=== PATIENT | female | born 1970 | race Caucasian/White ===

== ENCOUNTER → 2019-05-23 09:42 | Outpatient (BNVA) | payer MEDICARE, MEDICAID, SELFPAY | PROVIDERS: Family Provider Family Medicine; PCP Family Medicine; Visit Provider Nurse Practitioner Psychiatric/Mental Health | DX: F20.0 Paranoid schizophrenia (principal); F17.210 Nicotine dependence, cigarettes, uncomplicated; Z86.39 Personal history of other endocrine, nutritional and metabolic disease | CPT/HCPCS: 99213 ==

== ENCOUNTER → 2019-06-20 12:48 | Outpatient (BNVA) | payer MEDICARE, MEDICAID, SELFPAY | PROVIDERS: Family Provider Family Medicine; PCP Family Medicine; Visit Provider Nurse Practitioner Psychiatric/Mental Health | DX: F20.0 Paranoid schizophrenia (principal); F17.210 Nicotine dependence, cigarettes, uncomplicated | CPT/HCPCS: 99213 ==

== ENCOUNTER → 2019-07-18 13:39 | Outpatient (BNVA) | payer MEDICARE, MEDICAID, SELFPAY | PROVIDERS: Family Provider Family Medicine; PCP Family Medicine; Visit Provider Nurse Practitioner Psychiatric/Mental Health | DX: F20.0 Paranoid schizophrenia (principal); F17.210 Nicotine dependence, cigarettes, uncomplicated; Z86.39 Personal history of other endocrine, nutritional and metabolic disease | CPT/HCPCS: 99213 ==

== ENCOUNTER → 2019-08-15 07:38 | Outpatient (BNVA) | payer MEDICARE, MEDICAID, SELFPAY | PROVIDERS: Family Provider Family Medicine; PCP Family Medicine; Visit Provider Nurse Practitioner Psychiatric/Mental Health | DX: F20.0 Paranoid schizophrenia (principal); F17.210 Nicotine dependence, cigarettes, uncomplicated; Z86.39 Personal history of other endocrine, nutritional and metabolic disease | CPT/HCPCS: 99213 ==

== ENCOUNTER → 2019-09-12 08:08 | Outpatient (BNVA) | payer MEDICARE, MEDICAID, SELFPAY | PROVIDERS: Family Provider Family Medicine; PCP Family Medicine; Visit Provider Nurse Practitioner Psychiatric/Mental Health | DX: F20.0 Paranoid schizophrenia (principal); F17.210 Nicotine dependence, cigarettes, uncomplicated; Z86.39 Personal history of other endocrine, nutritional and metabolic disease | CPT/HCPCS: 99213 ==

== ENCOUNTER → 2019-10-10 07:39 | Outpatient (BNVA) | payer MEDICARE, MEDICAID, SELFPAY | PROVIDERS: Family Provider Family Medicine; PCP Family Medicine; Visit Provider Nurse Practitioner Psychiatric/Mental Health | DX: F20.0 Paranoid schizophrenia (principal); F17.210 Nicotine dependence, cigarettes, uncomplicated; Z79.899 Other long term (current) drug therapy | CPT/HCPCS: 99213 ==

== ENCOUNTER 2019-10-11 21:00 | Emergency (ER) | payer MEDICARE, MEDICAID, SELFPAY ==
--- NOTE | 2019-10-11 21:04 | US_ITS ---
WS: [id number] RIGHT UPPER QUADRANT ULTRASOUND HISTORY: Pain COMPARISON: None available. Liver: 16.6 cm in length. Normal size and echogenicity with no intrahepatic dilatation. No mass. Gallbladder: Mildly contracted gallbladder is probably due to nonfasting state. No stones or wall thi ckening identified. CBD: 0.4 cm Pancreas: Normal size and echogenicity. Right kidney: 10.6 cm in length. Normal echogenicity with no mass or hydronephrosis. Aorta and IVC: Unremarkable. No ascites. US/US gall bladder [id number] IMPRESSION: Normal RIGHT upper quadrant ultrasound.
[2019-10-11 21:17] VITALS: BP 131/87; PULSE 75; RESP 24; TEMP 36.8; O2SAT 92; BMI 31.8
[2019-10-11 21:56] LABS: Basophils # 0.1 10^3/uL (0.0-0.1); Basophils % 0.7 %; Eosinophils # 0.2 10^3/uL (0.0-0.8); Hematocrit 47.3 % (37.0-47.0); Hemoglobin 15.6 g/dL (11.5-15.3); Lymphocytes # 2.3 10^3/uL (0.8-4.8); Lymphocytes % 26.9 %; Mean Corpuscular Hemoglobin 30.1 pg (28.0-34.0); Mean Corpuscular Volume 91.3 fL (81-99); Mean Platelet Volume 9.1 fL (7.4-10.4); Monocytes # 0.9 10^3/uL (0.2-0.9); Monocytes % 10.3 %; Neutrophils # 5.1 10^3/uL (1.8-7.7); Neutrophils % 59.7 %; Nucleated Red Blood Cells % 0 %; Platelet Count 323 10^3/cmm (130-400); Red Blood Count 5.18 10^6/uL (4.1-5.3); Red Cell Distribution Width 12.3 % (12.1-15.1); White Blood Count 8.6 10^3/uL (4.0-10.0)
[2019-10-11 22:18] LABS: HCG, Serum Qual Negative (Negative)
[2019-10-11 22:26] LABS: Alanine Aminotransferase 9 U/L (0-33); Albumin Level 4.4 g/dL (3.5-5.2); Alkaline Phosphatase 86 IU/L (35-105); Anion Gap 14.9 (5-19); Aspartate Amino Transferase 16 U/L (0-32); Blood Urea Nitrogen 14 mg/dL (6-20); Calcium 9.6 mg/dL (8.5-10.5); Carbon Dioxide 29 mmol/L (22-29); Chloride 99 mmol/L (98-107); Globulin 2.8 g/dL (1.3-4.6); Glomerular Filtration Rate 88.6 mL/min (90-130); Glucose 102 mg/dL (65-115); Lipase 26 U/L (13-60); Osmolality Calculated 284 mOsm/kg (285-295); Potassium 3.9 mmol/L (3.5-5.1); Sodium 139 mmol/L (136-145); Total Bilirubin 0.3 mg/dL (0.15-1.2); Total Protein 7.2 g/dL (6.6-8.7)
[2019-10-11] MEDS: sodium chloride 0.9% 1,000 ML 100 ML IV (22:41)
--- NOTE | 2019-10-11 22:41 | W.ED.CHESTPA ---
HPI - Chest Pain General: Chief Complaint: Chest Pain Stated Complaint: r upper abd pain Time Seen by Provider: 10/11/19 22:07 History of Present Illness: HPI narrative: Patient is a 49-year-old female comes to the ED with right rib pain. Patient says symptoms started last Wednesday. Patient states she was doing a lot of work around the house and reconstructing her room she thinks she might of pulled a muscle while doing the work. Pain is located in the right lower rib region of chest and right upper quadrant of the abdomen. Pain is rated a 7 out of 10, but only when she moves her upper body. Pain is constant and does not correlate with any intake of food. Denies nausea, vomiting, bladder or bowel symptoms, shortness of breath, palpitations. Associated symptoms: Reports abdominal pain (Right upper quadrant pain.); Deny dyspnea, fever(s), nausea, palpitations or vomiting Review of Systems Const: Denies: fever(s), chills or fatigue Eyes: Denies: change in vision or eye discomfort ENMT: Denies: throat pain, odynophagia, nasal discharge or nasal congestion Card: Reports: chest pain (Right lateral lower rib pain.); Denies: palpitations, edema, swelling of feet/ankles, dyspnea on exertion or orthopnea Resp: Denies: dyspnea, productive cough or non-productive cough GI: Reports: abdominal pain (Right upper quadrant pain.); Denies: nausea, vomiting, diarrhea, constipation or hematochezia : Denies: flank pain, dysuria or hematuria Musc: Denies: neck pain, back pain or extremity swelling Skin/Breast: Denies: rash or new lesions Neuro: Denies: headache(s), numbness in extremities or weakness in extremities PFSH ED PFSH: Medical History Cigarette nicotine dependence History of hypoglycemia Hx of traumatic brain injury Paranoid schizophrenia in remission Surgical History Hx of shoulder surgery left shoulder Social History Smoking and tobacco status: current every day smoker cigarettes Packs smoked per day: 1 Years cigarettes smoked: 30 Quit status (tobacco): not considering quitting Second hand smoke exposure: No Smoking risk assessment/counseling performed?: No Reason smoking risk assessment not done: patient refused Physical Exam Const: COMMON NORMALS: patient oriented x3 and alert GENERAL APPEARANCE: cooperative and comfortable HENMT: COMMON NORMALS: normocephalic HEAD & SCALP: normocephalic MOUTH: Normal oral and palatal mucosa present THROAT: posterior oropharynx normal and uvula midline Neck/C-Spine: COMMON NORMALS: supple GENERAL: Yes normal visual inspection Chest: CHEST: Yes localized rib tenderness with anteroposterior compression (Right lateral side of chest tender) Location: 7th rib, 8th rib and 9th rib OTHER: Pain was reproducible when pushed on right lower chest and right upper quadrant. Resp: COMMON NORMALS: normal respiratory effort, No retractions, No use of accessory muscles and clear to auscultation bilaterally AUSCULTATION: clear to auscultation bilaterally Cardio: COMMON NORMALS: regular rate, regular rhythm, S1 normal heart sound present, S2 normal heart sound present, No gallops present (Cardio), No clicks present (Cardio), No murmurs present (Cardio) and Peripheral pulses 2+ throughout RATE: regular rate RHYTHM: regular rhythm HEART SOUNDS: S1 normal heart sound present and S2 normal heart sound present PERIPHERAL PULSES: Peripheral pulses 2+ throughout GI: COMMON NORMALS: Normal to inspection, nondistended, normoactive bowel sounds present, Soft to palpation and no masses PALPATION: Yes Soft to palpation and Yes Tenderness to palpation present (GI) Details: RUQ (Positive Webb sign.) : COMMON NORMALS: Yes no CVA tenderness BLADDER/KIDNEY EXAM: Yes no CVA tenderness Back/Pelvis: COMMON NORMALS: no CVA tenderness Extremity: COMMON NORMALS: normal to inspection and no pedal edema Neuro: COMMON NORMALS: patient oriented x3 and moves all extremities SENSORIUM/ORIENTATION: Yes alert Skin: COMMON NORMALS: no rashes or lesions noted GENERAL SKIN EXAM: no rashes or lesions noted and dry skin Course ED course: HEART score of 3-low risk category Vital Signs: Vital signs: Vital Signs Temperature 98.2 F 10/11/19 21:17 Pulse Rate 77 10/12/19 01:07 Respiratory Rate 18 10/12/19 01:07 Blood Pressure 137/88 10/12/19 01:07 Pulse Oximetry 98 10/12/19 01:07 MDM - Chest Pain MDM Narrative: Medical decision making narrative: Patient is a 49-year-old female who comes to the ED with right upper quadrant tenderness/lower right rib pain. Symptoms started after patient was doing a lot of reconstruction work in house. Patient's pain is reproducible when palpated in the right upper quadrant area and right lower rib area. Muscular tenderness when palpated in that region. Chest and right rib x-ray was performed to rule out any rib fractures. No rib fractures were seen chest x-ray was normal. Ultrasound of the gallbladder was performed to rule out any gallbladder cause for pain and reports showed no acute findings. CBC, CMP and lipase were unremarkable. EKG showed normal sinus rhythm, and troponins were negative ruling out any cardiac cause. Heart score of 3-low risk. Patient diagnosed with muscle strain and given a prescription of muscle relaxer to help with pain and comfort. Patient was told to ice the tender area and to take ibuprofen up to 600 mg 3 times a day. Follow-up with PCP in 7 to 10 days reevaluation. Patient understood and agreed with plan. Lab Data: Attestation: I reviewed the patient's lab results. Labs: Lab Results 10/11/19 10/11/19 10/11/19 Range/Units 21:42 21:42 21:42 WBC 8.6 (4.0-10.0) 10^3/ uL RBC 5.18 (4.1-5.3) 10^6/u L Hgb 15.6 H (11.5-15.3) g/dL Hct 47.3 H (37.0-47.0) % MCV 91.3 (81-99) fL MCH 30.1 (28.0-34.0) pg MCHC 33.0 (30.0-36.0) g/dL RDW 12.3 (12.1-15.1) % Plt Count 323 (130-400) 10^3/c mm MPV 9.1 (7.4-10.4) fL Neut % (Auto) 59.7 % Lymph % (Auto) 26.9 % [place] % (Auto) 10.3 % Eos % (Auto) 2.0 % Baso % (Auto) 0.7 % Neut # (Auto) 5.1 (1.8-7.7) 10^3/u L Lymph # (Auto) 2.3 (0.8-4.8) 10^3/u L [place] # (Auto) 0.9 (0.2-0.9) 10^3/u L Eos # (Auto) 0.2 (0.0-0.8) 10^3/u L Baso # (Auto) 0.1 (0.0-0.1) 10^3/u L Nucleated RBC % (a uto) 0 % Nucleated RBCs # 0.0 /100WBC Sodium 139 (136-145) mmol/L Potassium 3.9 (3.5-5.1) mmol/L Chloride 99 (98-107) mmol/L Carbon Dioxide 29 (22-29) mmol/L Anion Gap 14.9 (5-19) BUN 14 (6-20) mg/dL Creatinine 0.7 (0.5-0.9) mg/dL GFR Calculation 88.6 L (90-130) mL/min Glucose 102 (65-115) mg/dL Calculated Osmolal ity 284 L (285-295) mOsm/k g Calcium 9.6 (8.5-10.5) mg/dL Total Bilirubin 0.3 (0.15-1.2) mg/dL AST 16 (0-32) U/L ALT 9 (0-33) U/L Alkaline Phosphata se 86 (35-105) IU/L Troponin T Baselin e (0-10) ng/mL Total Protein 7.2 (6.6-8.7) g/dL Albumin 4.4 (3.5-5.2) g/dL Globulin 2.8 (1.3-4.6) g/dL Lipase 26 (13-60) U/L HCG, Qual Negative (Negative) 10/11/19 Range/Units 21:42 WBC (4.0-10.0) 10^3/ uL RBC (4.1-5.3) 10^6/u L Hgb (11.5-15.3) g/dL Hct (37.0-47.0) % MCV (81-99) fL MCH (28.0-34.0) pg MCHC (30.0-36.0) g/dL RDW (12.1-15.1) % Plt Count (130-400) 10^3/c mm MPV (7.4-10.4) fL Neut % (Auto) % Lymph % (Auto) % [place] % (Auto) % Eos % (Auto) % Baso % (Auto) % Neut # (Auto) (1.8-7.7) 10^3/u L Lymph # (Auto) (0.8-4.8) 10^3/u L [place] # (Auto) (0.2-0.9) 10^3/u L Eos # (Auto) (0.0-0.8) 10^3/u L Baso # (Auto) (0.0-0.1) 10^3/u L Nucleated RBC % (a uto) % Nucleated RBCs # /100WBC Sodium (136-145) mmol/L Potassium (3.5-5.1) mmol/L Chloride (98-107) mmol/L Carbon Dioxide (22-29) mmol/L Anion Gap (5-19) BUN (6-20) mg/dL Creatinine (0.5-0.9) mg/dL GFR Calculation (90-130) mL/min Glucose (65-115) mg/dL Calculated Osmolal ity (285-295) mOsm/k g Calcium (8.5-10.5) mg/dL Total Bilirubin (0.15-1.2) mg/dL AST (0-32) U/L ALT (0-33) U/L Alkaline Phosphata se (35-105) IU/L Troponin T Baselin e 6 (0-10) ng/mL Total Protein (6.6-8.7) g/dL Albumin (3.5-5.2) g/dL Globulin (1.3-4.6) g/dL Lipase (13-60) U/L HCG, Qual (Negative) Imaging Data^: CXR: Attestation: I personally reviewed and interpreted this imaging study as follows: My impression: No rib fractures or any acute findings seen. Pending final radiology report. US: Attestation: I personally reviewed and interpreted this imaging study as follows: Radiologist's impression: Ultrasound gallbladder-prelim report-no acute findings seen EKG Data^: EKG 1: Attestation: I personally reviewed and interpreted this EKG as follows: EKG interpretation date: 10/11/19 Interpretation: Normal sinus rhythm, ventricular rate 59 bpm, P waves present no ST segment elevation or depression seen. Discharge Plan Discharge Patient Disposition: Home, Self-Care Clinical Impression: Muscle strain Condition: Stable Prescriptions: New methocarbamol 750 mg tablet 750 mg PO Q8H Qty: 20 RF: 0 No Action melatonin 3 mg capsule 3 mg PO .QHS PRN (Reason: sleep) RF: 0 Abilify Maintena 300 mg suspension,extended rel recon 300 mg IM .Q 4WKS Qty: 1 RF: 12 Discharge Orders: Discharge Order (Routine); Ordered 10/12/19 Ordered By: Yoan Knapp Referrals: Eyad Arndt DO [Primary Care Provider] - Discharge Diet: Regular Discharge Activity: Increase activity as tolerated Patient Instructions: Muscle Strain (ED) Activity Restrictions/Additional Instructions: Follow-up with your PCP in the next 7 to 10 days for reevaluation. Take muscle relaxer as prescribed. Take dose at night to help with pain and comfort while sleeping. Remember muscle relaxer can cause some drowsiness so use with caution during the day. Apply ice on sore spot. Take ibuprofen up to 600 mg 3 times a day to help with pain and inflammation. Discharge Date/Time: 10/12/19 01:14 Coding Level of Care Code ED Electrical Maintenance Worker for Ajay Fwrhonda Exam Comprehensive
--- NOTE | 2019-10-11 22:53 | XR_ITS ---
WS: [id number] RIGHT RIBS, MULTIPLE VIEWS WITH PA CHEST HISTORY: right rib pain COMPARISON: None available. Lungs and mediastinum: No pneumothorax or pulmonary contusion. No pleural effusion. Ribs: No rib fractures or bone destruction identified. XR/XR ribs RT mn 3V w CXR1V [id number] IMPRESSION: No RIGHT rib fractures identified.
--- NOTE | 2019-10-11 23:10 | ECG_ITS ---
Measurements Intervals [place] Rate: 59 P: 56 IN: 144 QRS: 34 QRSD: 86 T: 62 QT: 408 QTc: 407 SINUS BRADYCARDIA WITH SINUS ARRHYTHMIA No previous ECG available for comparison Electronically Signed On 10-12-2019 11:47:31 CDT by Glenn Marti M.D. [id number]
[2019-10-11 23:28] LABS: Troponin(5th) Baseline 6 ng/mL (0-10)
[2019-10-11 23:41] VITALS: BP 138/78; PULSE 59; RESP 16; O2SAT 97
[2019-10-12] MEDS: HYDROcodone-acetaminophen 7.5-325 mg Tablet 1 TAB PO (01:00)
[2019-10-12 01:07] VITALS: BP 137/88; PULSE 77; RESP 18; O2SAT 98
== END 2019-10-12 01:14 | disposition home or self-care (01) ==
PROVIDERS: Emergency Medicine; Emergency Provider Physician Assistant; PCP Family Medicine
DX: S39.011A Strain of muscle, fascia and tendon of abdomen, initial encounter (principal); X58.XXXA Exposure to other specified factors, initial encounter; F17.210 Nicotine dependence, cigarettes, uncomplicated
CPT/HCPCS: 12345; 36415; 71101; 76705; 80053; 83690; 84484; 84703; 85025; 93005; 96360; 96361; 99282; 99284; J7030

== ENCOUNTER → 2019-11-07 07:29 | Outpatient (BNVA) | payer MEDICARE, MEDICAID, SELFPAY | PROVIDERS: PCP Family Medicine; Visit Provider Nurse Practitioner Psychiatric/Mental Health | DX: F20.0 Paranoid schizophrenia (principal); F17.210 Nicotine dependence, cigarettes, uncomplicated | CPT/HCPCS: 96372; 99213 ==

== ENCOUNTER → 2019-12-05 07:38 | Outpatient (BNVA) | payer MEDICARE, MEDICAID, SELFPAY | PROVIDERS: PCP Family Medicine; Visit Provider Nurse Practitioner Psychiatric/Mental Health | DX: F20.0 Paranoid schizophrenia (principal); F17.210 Nicotine dependence, cigarettes, uncomplicated | CPT/HCPCS: 99213 ==

== ENCOUNTER → 2020-01-02 07:49 | Outpatient (BNVA) | payer MEDICARE, MEDICAID, SELFPAY | PROVIDERS: PCP Family Medicine; Visit Provider Nurse Practitioner Psychiatric/Mental Health | DX: F20.0 Paranoid schizophrenia (principal); F17.210 Nicotine dependence, cigarettes, uncomplicated | CPT/HCPCS: 96372; 99213 ==

== ENCOUNTER → 2020-01-30 08:36 | Outpatient (BNVA) | payer MEDICARE, MEDICAID, SELFPAY | PROVIDERS: PCP Family Medicine; Visit Provider Nurse Practitioner Psychiatric/Mental Health | DX: F20.0 Paranoid schizophrenia (principal); F17.210 Nicotine dependence, cigarettes, uncomplicated; Z03.89 Encounter for observation for other suspected diseases and conditions ruled out; Z79.899 Other long term (current) drug therapy | CPT/HCPCS: 80061; 83036; 96372; 99213 ==

== ENCOUNTER → 2020-02-27 09:35 | Outpatient (BNVA) | payer MEDICARE, MEDICAID, SELFPAY | PROVIDERS: PCP Family Medicine; Visit Provider Nurse Practitioner Psychiatric/Mental Health | DX: F20.0 Paranoid schizophrenia (principal); F17.210 Nicotine dependence, cigarettes, uncomplicated | CPT/HCPCS: 96372; 99213 ==

== ENCOUNTER → 2020-03-26 07:39 | Outpatient (BNVA) | payer MEDICARE, MEDICAID, SELFPAY | PROVIDERS: PCP Family Medicine; Visit Provider Nurse Practitioner Psychiatric/Mental Health | DX: F20.0 Paranoid schizophrenia (principal); F17.210 Nicotine dependence, cigarettes, uncomplicated | CPT/HCPCS: 96372; 99213 ==

== ENCOUNTER → 2020-04-23 08:50 | Outpatient (BNVA) | payer MEDICARE, MEDICAID, SELFPAY | PROVIDERS: PCP Family Medicine; Visit Provider Nurse Practitioner Psychiatric/Mental Health | DX: F20.0 Paranoid schizophrenia (principal); F17.210 Nicotine dependence, cigarettes, uncomplicated | CPT/HCPCS: 96372; 99213 ==

== ENCOUNTER → 2020-05-24 11:17 | Outpatient (BNVA) | payer MEDICARE, MEDICAID, SELFPAY | PROVIDERS: PCP Family Medicine; Visit Provider Nurse Practitioner | DX: F20.0 Paranoid schizophrenia (principal) | CPT/HCPCS: 96372; 99203 ==

== ENCOUNTER → 2020-06-24 08:50 | Outpatient (BNVA) | payer MEDICARE, MEDICAID, SELFPAY | PROVIDERS: PCP Family Medicine; Visit Provider Nurse Practitioner Psychiatric/Mental Health | DX: F20.0 Paranoid schizophrenia (principal) | CPT/HCPCS: 96372; 99213 ==

== ENCOUNTER → 2020-07-22 08:36 | Outpatient (BNVA) | payer MEDICAID, SELFPAY | PROVIDERS: PCP Family Medicine; Visit Provider Nurse Practitioner Psychiatric/Mental Health | DX: F20.0 Paranoid schizophrenia (principal) | CPT/HCPCS: 96372; 99213 ==

== ENCOUNTER → 2020-08-19 09:46 | Outpatient (BNVA) | payer MEDICARE, MEDICAID, SELFPAY | PROVIDERS: PCP Family Medicine; Visit Provider Nurse Practitioner | DX: F20.0 Paranoid schizophrenia (principal) | CPT/HCPCS: 96372; 99214 ==

== ENCOUNTER → 2020-09-16 13:02 | Outpatient (BNVA) | payer MEDICARE, MEDICAID, SELFPAY | PROVIDERS: PCP Family Medicine; Visit Provider Nurse Practitioner Psychiatric/Mental Health | DX: F20.0 Paranoid schizophrenia (principal); F17.210 Nicotine dependence, cigarettes, uncomplicated | CPT/HCPCS: 96372; 99213 ==

== ENCOUNTER → 2020-10-21 08:38 | Outpatient (BNVA) | payer MEDICARE, MEDICAID, SELFPAY | PROVIDERS: PCP Family Medicine; Visit Provider Nurse Practitioner Psychiatric/Mental Health | DX: F20.0 Paranoid schizophrenia (principal); F17.210 Nicotine dependence, cigarettes, uncomplicated | CPT/HCPCS: 96372; 99214 ==

== ENCOUNTER → 2020-11-20 08:47 | Outpatient (BNVA) | payer MEDICARE, MEDICAID, SELFPAY | PROVIDERS: PCP Family Medicine; Visit Provider Nurse Practitioner Psychiatric/Mental Health | DX: F20.0 Paranoid schizophrenia (principal); F17.210 Nicotine dependence, cigarettes, uncomplicated | CPT/HCPCS: 96372; 99214 ==

== ENCOUNTER → 2020-12-18 08:46 | Outpatient (BNVA) | payer MEDICARE, MEDICAID, SELFPAY | PROVIDERS: PCP Family Medicine; Visit Provider Nurse Practitioner Psychiatric/Mental Health | DX: F20.0 Paranoid schizophrenia (principal); Z79.899 Other long term (current) drug therapy; F17.210 Nicotine dependence, cigarettes, uncomplicated | CPT/HCPCS: 96372; 99213 ==

== ENCOUNTER → 2021-01-16 08:35 | Outpatient (BNVA) | payer MEDICARE, MEDICAID, SELFPAY | PROVIDERS: PCP Family Medicine; Visit Provider Nurse Practitioner Psychiatric/Mental Health | DX: F20.0 Paranoid schizophrenia (principal); F17.210 Nicotine dependence, cigarettes, uncomplicated | CPT/HCPCS: 96372; 99214 ==

== ENCOUNTER → 2021-02-19 08:46 | Outpatient (BNVA) | payer MEDICARE, MEDICAID, SELFPAY | PROVIDERS: PCP Family Medicine; Visit Provider Nurse Practitioner Psychiatric/Mental Health | DX: F20.0 Paranoid schizophrenia (principal); F17.210 Nicotine dependence, cigarettes, uncomplicated; Z79.899 Other long term (current) drug therapy | CPT/HCPCS: 80053; 80061; 83036; 85025; 96372; 99214 ==

== ENCOUNTER → 2021-03-19 08:46 | Outpatient (BNVA) | payer MEDICARE, MEDICAID, SELFPAY | PROVIDERS: PCP Family Medicine; Visit Provider Nurse Practitioner Psychiatric/Mental Health | DX: F20.0 Paranoid schizophrenia (principal); Z79.899 Other long term (current) drug therapy; F17.210 Nicotine dependence, cigarettes, uncomplicated | CPT/HCPCS: 96372; 99214 ==

== ENCOUNTER → 2021-04-17 14:32 | Outpatient (BNVA) | payer MEDICARE, MEDICAID, SELFPAY | PROVIDERS: PCP Family Medicine; Visit Provider Nurse Practitioner Psychiatric/Mental Health | DX: F20.0 Paranoid schizophrenia (principal); F17.210 Nicotine dependence, cigarettes, uncomplicated | CPT/HCPCS: 96372; 99214 ==

== ENCOUNTER → 2021-05-13 14:40 | Outpatient (BNVA) | payer MEDICARE, MEDICAID, SELFPAY | PROVIDERS: PCP Family Medicine; Visit Provider Nurse Practitioner Psychiatric/Mental Health | DX: F20.0 Paranoid schizophrenia (principal); F17.210 Nicotine dependence, cigarettes, uncomplicated | CPT/HCPCS: 96372; 99214 ==

== ENCOUNTER → 2021-06-12 12:45 | Outpatient (BNVA) | payer MEDICARE, MEDICAID, SELFPAY | PROVIDERS: PCP Family Medicine; Visit Provider Nurse Practitioner Psychiatric/Mental Health | DX: F17.210 Nicotine dependence, cigarettes, uncomplicated (principal); F20.0 Paranoid schizophrenia; Z79.899 Other long term (current) drug therapy | CPT/HCPCS: 96372; 99214 ==

== ENCOUNTER → 2021-07-08 12:43 | Outpatient (BNVA) | payer MEDICARE, MEDICAID, SELFPAY | PROVIDERS: PCP Family Medicine; Visit Provider Nurse Practitioner Psychiatric/Mental Health | DX: F20.0 Paranoid schizophrenia (principal); F17.210 Nicotine dependence, cigarettes, uncomplicated | CPT/HCPCS: 96372; 99214 ==

== ENCOUNTER → 2021-08-08 13:13 | Outpatient (BNVA) | payer MEDICARE, MEDICAID, SELFPAY | PROVIDERS: PCP Family Medicine; Visit Provider Nurse Practitioner Psychiatric/Mental Health | DX: F17.210 Nicotine dependence, cigarettes, uncomplicated (principal); F20.0 Paranoid schizophrenia | CPT/HCPCS: 96372; 99214 ==

== ENCOUNTER → 2021-09-08 12:44 | Outpatient (BNVA) | payer MEDICARE, MEDICAID, SELFPAY | PROVIDERS: PCP Family Medicine; Visit Provider Nurse Practitioner Psychiatric/Mental Health | DX: F17.210 Nicotine dependence, cigarettes, uncomplicated (principal); F20.0 Paranoid schizophrenia; Z79.899 Other long term (current) drug therapy | CPT/HCPCS: 96372; 99214 ==

== ENCOUNTER → 2021-10-08 08:45 | Outpatient (BNVA) | payer MEDICARE, MEDICAID, SELFPAY | PROVIDERS: PCP Family Medicine; Visit Provider Nurse Practitioner Psychiatric/Mental Health | DX: F17.210 Nicotine dependence, cigarettes, uncomplicated (principal) | CPT/HCPCS: 96372; 99214 ==

== ENCOUNTER → 2021-11-07 08:09 | Outpatient (BNVA) | payer MEDICARE, MEDICAID, SELFPAY | PROVIDERS: PCP Family Medicine; Visit Provider Nurse Practitioner Psychiatric/Mental Health | DX: F17.210 Nicotine dependence, cigarettes, uncomplicated (principal); F20.0 Paranoid schizophrenia; Z79.899 Other long term (current) drug therapy | CPT/HCPCS: 96372; 99214 ==

== ENCOUNTER → 2022-04-01 08:39 | Outpatient (BNVA) | payer MEDICARE, MEDICAID, OTHER, SELFPAY | PROVIDERS: PCP Family Medicine; Visit Provider Nurse Practitioner Psychiatric/Mental Health | DX: F20.0 Paranoid schizophrenia (principal); Z79.899 Other long term (current) drug therapy; F17.210 Nicotine dependence, cigarettes, uncomplicated | CPT/HCPCS: 80053; 80061; 82306; 83036 ==

== ENCOUNTER 2022-06-25 13:35 | Emergency (ER) | payer MEDICARE, MEDICAID, SELFPAY ==
[2022-06-25 13:44] VITALS: BP 157/92; PULSE 80; RESP 20; TEMP 36.9; O2SAT 74
--- NOTE | 2022-06-25 13:55 | XRR_ITS ---
PROCEDURE INFORMATION: Exam: XR Chest Exam date and time: 06/25/2022 2:56 PM Age: 52 years old Clinical indication: Shortness of breath; Additional info: Dyspnea TECHNIQUE: Imaging protocol: Radiologic exam of the chest. Views: 1 view. COMPARISON: CR XR ribs RT mn 3V w CXR1V [id number] 10/11/2019 11:01 PM FINDINGS: Lungs: Faint bibasilar ground-glass opacities not evident previously that may be artifactual from breast attenuation artifact. However possibility of mild bibasilar interstitial infiltrates cannot be ruled out and could be clarified on follow-up PA and lateral chest exam. Chronic granulomatous calcifications within the mediastinum and right hilum, stable. Pleural spaces: Unremarkable. No pleural effusion. No pneumothorax. Heart/Mediastinum: Unremarkable. No cardiomegaly. Bones/joints: Unremarkable for age. XR/XR chest 1V portable [id number] IMPRESSION: Nonspecific faint bibasilar opacities as discussed above.
--- NOTE | 2022-06-25 13:55 | ECG_ITS ---
[facility] Test Date: 2022-06-25 Pat Name: Pita Unger Department: Room: Gender: Female Counselor/Art Therapist: : 1970 Requested By: Cesar Moscoso Order Number: [id number] Toshia MD: Sandra Ramirez M.D. Measurements Intervals [place] Rate: 101 P: 64 MT: 129 QRS: 34 QRSD: 82 T: 46 QT: 369 QTc: 478 Interpretive Statements SINUS TACHYCARDIA POSSIBLE ANTERIOR MYOCARDIAL INFARCTION , OF INDETERMINATE AGE [30 ms Q WAVE IN V3/V4, OR R < 0.2 mV IN V4] MODERATE T-WAVE ABNORMALITY, CONSIDER LATERAL ISCHEMIA [-0.1+ mV T-WAVE IN I/aVL/V5/V6] Compared to ECG 10/11/2019 23:45:54 Myocardial infarct finding now present T-wave abnormality now present Possible ischemia now present Sinus bradycardia no longer present Sinus arrhythmia no longer present Electronically Signed On 06-26-2022 7:56:01 BRIDGE REPAIRER by Sandra Ramirez M.D. [email or web address]
[2022-06-25 14:07] VITALS: BP 162/97; PULSE 95; RESP 19; O2SAT 95
--- NOTE | 2022-06-25 14:08 | ED_ITS ---
HPI - SOB/Dyspnea General: Chief Complaint: Shortness of Breath/Dyspnea Stated Complaint: Hair sent for heart issues Time Seen by Provider: 06/25/22 13:54 Source: patient Mode of arrival: ambulatory History of Present Illness: HPI Narrative: 52-year-old presents to the emergency room with complaint of shortness of breath on arrival here her oxygen sat is 78% on room air she has increasing swelling he r legs as well as lower extremity edema the last few days. She has been extremely weak and short of breath has had a slight cough and some wheezing. She denies any history of COPD or CHF but she does smoke daily. She is not on any inhaled medications she has no known history of coronary artery disease she has no known history of diabetes mellitus. She is not on oxygen at home she denies any chest pain. MD elicited complaint: shortness of breath and cough Onset (ago): week(s) Timing: progressively worsening Severity: moderate Exacerbating factors: lying flat, exertion and coughing Relieving factors: oxygen and upright position Associated symptoms: Reports chest congestion, cough and orthopnea; Deny abdominal pain, chest pain, diaphoresis, dizziness, extremity pain, fever(s), hemoptysis, lightheadedness, myalgias, nausea, palpitations, paresthesias, polydipsia, polyuria, rash, sense of impending doom, syncope or vomiting Treatment prior to arrival: none Review of Systems Const: Denies: fever(s), chills, fatigue, malaise or diaphoresis ENMT: Denies: throat pain, ear or mastoid pain, nasal discharge or nasal congestion Card: Reports: orthopnea; Denies: chest pain, palpitations, lightheadedness or syncope Resp: Reports: dyspnea, non-productive cough, wheezing and chest congestion; Denies: productive cough or hemoptysis GI: Denies: abdominal pain, nausea or vomiting : Denies: flank pain, difficulty voiding, dysuria, urinary frequency or urinary urgency Musc: Reports: extremity swelling; Denies: neck pain, back pain or extremity pain Skin/Breast: Denies: rash or pruritus Neuro: Denies: dizziness Endo: Denies: polyuria or polydipsia PFS ED PFSH: Medical History Cigarette nicotine dependence History of hypoglycemia Hx of traumatic brain injury Paranoid schizophrenia in remission Psychiatric care Surgical History Hx of shoulder surgery left shoulder Social History Smoking and tobacco status: current every day smoker cigarettes Packs smoked per day: 1 Years cigarettes smoked: 30 Quit status (tobacco): not considering quitting Second hand smoke exposure: No Smoking risk assessment/counseling performed?: No Reason smoking risk assessment not done: patient refused Physical Exam Const: COMMON NORMALS: no acute distress GENERAL APPEARANCE: cooperative and comfortable ORIENTATION/CONSCIOUSNESS: Yes awake, Yes oriented to person, Yes oriented to place and Yes oriented to time HENMT: COMMON NORMALS: normocephalic, atraumatic and hearing grossly normal bilaterally HEAD & SCALP: normocephalic and atraumatic Resp: EFFORT & INSPECTION: Yes tachypneic and Yes uses accessory muscles AUSCULTATION: wheezes and diminished lung sounds Cardio: COMMON NORMALS: regular rate, regular rhythm and No murmurs present (Cardio) RATE: regular rate RHYTHM: regular rhythm GI: COMMON NORMALS: Soft to palpation and No hepatosplenomegaly present AUSCULTATION: Yes normoactive bowel sounds PALPATION: Yes Soft to palpation, No Tenderness to palpation present (GI), No Guarding due to palpation present (GI) and Yes No hepatosplenomegaly present Extremity: COMMON NORMALS: normal to inspection, capillary refill normal, no clubbing, cyanosis or edema, no calf tenderness and no pedal edema Neuro: SENSORIUM/ORIENTATION: Yes oriented to person, Yes oriented to place and Yes oriented to time Skin: COMMON NORMALS: no rashes or lesions noted GENERAL SKIN EXAM: no rashes or lesions noted Course Vital Signs: Vital signs: Vital Signs Temperature 98.4 F 06/25/22 13:44 Pulse Rate 90 06/25/22 15:49 Respiratory Rate 19 H 06/25/22 15:33 Blood Pressure 162/97 06/25/22 14:07 Pulse Oximetry 84 L 06/25/22 17:30 Oxygen Delivery Me thod 06/25/22 15:33 Oxygen Flow Rate 5 06/25/22 17:30 MDM - SOB/Dyspnea Medical Decision Making Labs imaging and EKG reviewed. COVID testing is negative. Findings consistent with severe COPD with exacerbation and CHF. Recommended admission patient refuses long discussion with patient and very concerned that she will decompensate and worsen significantly and could even given the degree of her hypoxia when she first arrived. She was prescribed oxygen several years ago has not been using we will discharge her home on 5 L. We will also start her on inhaled medications. Expressed to her my sincere concern that she will likely worsen. May even go into respiratory arrest. Despite not knowledge of this and it encouragement of her family to space to stay she refuses to say no be discharged home we will discharge her home on Lasix inhaled corticosteroids and long-acting beta agonist. Return if is any further problems or changes mind and wishes to be admitted Medical Records I reviewed the patient's medical records. Lab Data I reviewed the patient's lab results. 06/25/22 14:20 06/25/22 14:20 Labs/Radiology: Radiology Impressions Chest X-Ray 06/25/22 13:55 IMPRESSION: Nonspecific faint bibasilar opacities as discussed above. Laboratory Results WBC 10.7 10^3/uL (4.0-10.0) H 06/25/22 14:20 RBC 5.36 10^6/uL (4.1-5.3) H 06/25/22 14:20 Hgb 16.5 g/dL (11.5-15.3) H 06/25/22 14:20 Hct 51.7 % (37.0-47.0) H 06/25/22 14:20 MCV 96.5 fl (81-99) 06/25/22 14:20 MCH 30.8 pg (28.0-34.0) 06/25/22 14:20 MCHC 31.9 g/dL (30.0-36.0) 06/25/22 14:20 RDW 14.4 % (12.1-15.1) 06/25/22 14:20 Plt Count 456 10^3/cmm (130-400) H 06/25/22 14:20 MPV 8.3 fL (7.4-10.4) 06/25/22 14:20 Neut % (Auto) 69.0 % 06/25/22 14:20 Lymph % (Auto) 18.4 % 06/25/22 14:20 [place] % (Auto) 10.4 % 06/25/22 14:20 Eos % (Auto) 0.7 % 06/25/22 14:20 Baso % (Auto) 0.6 % 06/25/22 14:20 Neut # (Auto) 7.36 10^3/uL (1.8-7.7) 06/25/22 14:20 Lymph # (Auto) 2.0 10^3/uL (0.8-4.8) 06/25/22 14:20 [place] # (Auto) 1.1 10^3/uL (0.2-0.9) H 06/25/22 14:20 Eos # (Auto) 0.1 10^3/uL (0.0-0.8) 06/25/22 14:20 Baso # (Auto) 0.1 10^3/uL (0.0-0.1) 06/25/22 14:20 Nucleated RBC % (auto) 0 % 06/25/22 14:20 Nucleated RBCs # 0.0 /100WBC 06/25/22 14:20 Sodium 137 mmol/L (136-145) 06/25/22 14:20 Potassium 4.4 mmol/L (3.5-5.1) 06/25/22 14:20 Chloride 96 mmol/L (98-107) L 06/25/22 14:20 Carbon Dioxide 35 mmol/L (22-29) H 06/25/22 14:20 Anion Gap 10.4 (5-19) 06/25/22 14:20 BUN 9 mg/dL (6-20) 06/25/22 14:20 Creatinine 0.5 mg/dL (0.5-0.9) 06/25/22 14:20 GFR Calculation 129.1 mL/min (90-130) 06/25/22 14:20 Glucose 108 mg/dL (65-115) 06/25/22 14:20 Calculated Osmolality 283 mOsm/kg (285-295) L 06/25/22 14:20 Calcium 8.9 mg/dL (8.5-10.5) 06/25/22 14:20 Total Bilirubin 0.2 mg/dL (0.15-1.2) 06/25/22 14:20 AST 25 U/L (0-32) 06/25/22 14:20 ALT 36 U/L (0-33) H 06/25/22 14:20 Alkaline Phosphatase 86 U/L (35-105) 06/25/22 14:20 NT-Pro-B Natriuret Pep 1562 pg/mL (0-125) H 06/25/22 14:20 Total Protein 6.2 g/dL (6.6-8.7) L 06/25/22 14:20 Albumin 3.5 g/dL (3.5-5.2) 06/25/22 14:20 Globulin 2.7 g/dL (1.3-4.6) 06/25/22 14:20 Coronavirus 229E (PCR) Not detected (NOT DETECT) 06/25/22 15:45 SARS-CoV-2 (PCR) Not detected (NOT DETECT) 06/25/22 15:45 Discharge Plan Discharge Patient Disposition: Home Clinical Impression: Acute exacerbation of chronic obstructive airways disease, COPD (chronic obstructive pulmonary disease), Pulmonary arterial hypertension, Hypoxia Condition: Stable Prescriptions: New prednisone 20 mg tablet 20 mg PO TID Qty: 15 0RF Rx Instructions: 1 p.o. 3 times daily x3 days, 1 p.o. twice daily x2 days, 1 p.o. daily x2 days Advair Diskus 250-50 mcg/dose blister with device 1 inh inhalation BID Qty: 60 0RF albuterol sulfate 90 mcg/actuation HFA aerosol inhaler 2 inh INHALATION Q4H PRN (Reason: shortness of breath or wheezing) Qty: 18 0RF No Action aripiprazole [Abilify] 10 mg tablet 10 mg PO DAILY PRN (Reason: breakthrough symptoms) Qty: 14 2RF Rx Instructions: 1 tablet daily as needed one wk prior to injection as needed break thru symptoms triamterene-hydrochlorothiazid 37.5-25 mg capsule 1 cap PO DAILY cetirizine [Zyrtec] 10 mg tablet 10 mg PO DAILY PRN (Reason: allergy symptoms) Qty: 30 6RF (DME) o2 24 hr via NC 2L See Rx Instructions .Route .MEDSUPPLY Qty: 1 0RF Rx Instructions: RA rest 92%, RA walk 86% ,on 2L o2 walk 92%, rest on 2L 94% multivitamin Tablet 1 tab PO DAILY Abilify Maintena 300 mg suspension,extended rel recon 300 mg IM Q30D Discharge Orders: Discharge ED (Routine); Ordered 06/25/22 Ordered By: Cesar Perez Referrals: Eyad Arndt, [Primary Care Provider] - Discharge Diet: Usual diet Discharge Activity: Increase activity as tolerated Patient Instructions: Opioid Safety, Pain Management Activity Restrictions/Additional Instructions: You are seen today for shortness of breath. Our recommendation because of your severe hypoxia is that you be admitted. You chose to go home. We strongly recommend that you be admitted you have a life-threatening hypoxia. We did give you prescriptions to try to improve your condition and tested you for oxygen and have the rate made arrangements for you to get home oxygen. If you change your mind at any point you are welcome and encouraged to return so that we can help you treat this condition. Coding Level of Care Code ED Therapeutic Recreation Specialist for Ajay [place]
[2022-06-25 14:27] LABS: Basophils # 0.1 10^3/uL (0.0-0.1); Basophils % 0.6 %; Eosinophils # 0.1 10^3/uL (0.0-0.8); Eosinophils % 0.7 %; Hematocrit 51.7 % (37.0-47.0); Hemoglobin 16.5 g/dL (11.5-15.3); Lymphocytes % 18.4 %; Mean Corpuscular HGB Conc 31.9 g/dL (30.0-36.0); Mean Corpuscular Hemoglobin 30.8 pg (28.0-34.0); Mean Corpuscular Volume 96.5 fl (81-99); Mean Platelet Volume 8.3 fL (7.4-10.4); Monocytes # 1.1 10^3/uL (0.2-0.9); Monocytes % 10.4 %; Neutrophils # 7.36 10^3/uL (1.8-7.7); Nucleated Red Blood Cells % 0 %; Platelet Count 456 10^3/cmm (130-400); Red Blood Count 5.36 10^6/uL (4.1-5.3); Red Cell Distribution Width 14.4 % (12.1-15.1); White Blood Count 10.7 10^3/uL (4.0-10.0)
[2022-06-25] MEDS: FUROsemide 10 mg/mL SDV 4mL 40 MG IVP (14:33)
[2022-06-25 14:56] LABS: Alanine Aminotransferase 36 U/L (0-33); Albumin Level 3.5 g/dL (3.5-5.2); Alkaline Phosphatase 86 U/L (35-105); Anion Gap 10.4 (5-19); Aspartate Amino Transferase 25 U/L (0-32); Blood Urea Nitrogen 9 mg/dL (6-20); Calcium 8.9 mg/dL (8.5-10.5); Carbon Dioxide 35 mmol/L (22-29); Chloride 96 mmol/L (98-107); Creatinine Clr Calc Pharmacy 129.8061; Globulin 2.7 g/dL (1.3-4.6); Glomerular Filtration Rate 129.1 mL/min (90-130); Glucose 108 mg/dL (65-115); NT Pro B Type Natriuretic Pept 1562 pg/mL (0-125); Osmolality Calculated 283 mOsm/kg (285-295); Potassium 4.4 mmol/L (3.5-5.1); Sodium 137 mmol/L (136-145); Total Bilirubin 0.2 mg/dL (0.15-1.2); Total Protein 6.2 g/dL (6.6-8.7)
[2022-06-25] MEDS: ipratropium-albuterol 3 mL Neb INHALATION (15:31)
[2022-06-25 15:33] VITALS: PULSE 98; RESP 19; O2SAT 94
[2022-06-25 15:35] VITALS: PULSE 101
[2022-06-25 15:49] VITALS: PULSE 90
[2022-06-25 17:30] VITALS: O2SAT 84; O2SAT 91
[2022-06-25 17:38] LABS: Adenovirus Not Detected (NOT DETECT); Chlamydia Pneumoniae Not Detected (NOT DETECT); Coronavirus 229E,HKU1,NL63,OC4 Not Detected (NOT DETECT); Human Metapneumovirus Not Detected (NOT DETECT); Human Rhinovirus/Enterovirus Not Detected (NOT DETECT); Influenza A Not Detected (NOT DETECT); Influenza A H1 Not Detected (NOT DETECT); Influenza A H1-2009 Not Detected (NOT DETECT); Influenza A H3 Not Detected (NOT DETECT); Influenza B Not Detected (NOT DETECT); Mycoplasma Pneumoniae Not Detected (NOT DETECT); Parainfluenza Virus Type 1 Not Detected (NOT DETECT); Parainfluenza Virus Type 2 Not Detected (NOT DETECT); Parainfluenza Virus Type 3 Not Detected (NOT DETECT); Parainfluenza Virus Type 4 Not Detected (NOT DETECT); Respiratory Syncytial Virus A Not Detected (NOT DETECT); Respiratory Syncytial Virus B Not Detected (NOT DETECT); SARS-COV-2 Not Detected (NOT DETECT)
== END 2022-06-25 18:13 | disposition home or self-care (01) ==
PROVIDERS: Emergency Provider Family Medicine; PCP Family Medicine
DX: J44.1 Chronic obstructive pulmonary disease with (acute) exacerbation (principal); I27.21 Secondary pulmonary arterial hypertension; R09.02 Hypoxemia; Z20.822 Contact with and (suspected) exposure to COVID-19; Z87.820 Personal history of traumatic brain injury; F17.210 Nicotine dependence, cigarettes, uncomplicated
CPT/HCPCS: 71045; 80053; 83880; 85025; 87635; 93005; 94640; 96374; 99285; J1940

== ENCOUNTER → 2022-08-31 11:48 | Outpatient (BNVA) | payer MEDICARE, MEDICAID, SELFPAY | PROVIDERS: PCP Family Medicine; Visit Provider Internal Medicine | DX: R06.09 Other forms of dyspnea (principal); R09.02 Hypoxemia; Z72.0 Tobacco use | CPT/HCPCS: 99204 ==

== ENCOUNTER 2022-09-18 13:49 | Outpatient (CLI) | payer MEDICARE, MEDICAID, SELFPAY ==
--- NOTE | 2022-09-18 13:45 | USCV_ITS ---
Pita Unger Age: 52 Gender: F : 1970 Exam Date: 09/18/2022 14:47 Ordering Phys: Jhon Sherman M.D ([email or web address]) Technologist: CT Exam [place]: [facility] [place] Indication: sob chest pain BP: 130 / 74 HR: 72 Rhythm: Sinus Technical Quality: Adequate MEASUREMENTS (Male / Female) Normal Values 2D ECHO LV Diastolic Diameter PLAX 3.7 cm 4.2 - 5.9 / 3.9 - 5.3 cm LV Systolic Diameter PLAX 2.0 cm IVS Diastolic Thickness 1.0 cm 0.6 - 1.0 / 0.6 - 0.9 cm IVS Systolic Thickness 1.2 cm LVPW Diastolic Thickness 0.9 cm 0.6 - 1.0 / 0.6 - 0.9 cm LVPW Systolic Thickness 1.4 cm LVOT Diameter 2.0 cm LV Ejection Fraction 2D Teich 73.9 % LV Ejection Fraction MOD 2C 76.9 % LV Ejection Fraction 2C AL 78.9 % LA Diameter 3.8 cm Aorta at Sinotubular Diameter 2.1 cm IVC Diameter 2.0 cm M-MODE Aortic Annulus Diameter 3.8 cm LA Ao Ratio MM 1.1 MV E Point Septal Separation 1.4 cm DOPPLER AV Peak Velocity 146.0 cm/s LVOT Peak Velocity 126.0 cm/s AV Area Cont Eq vti 3.0 cm squared AV Area Cont Eq pk 2.8 cm squared MV Area PHT 4.6 cm squared Mitral E to A Ratio 1.2 MV E' Velocity 50.2 cm/s Mitral E to MV E' Ratio 7.7 Mitral E to LV E' Lateral Ratio 8.0 Mitral E to LV E' Septal Ratio 7.5 TR Peak Velocity 162.3 cm/s TR Peak Gradient 10.5 mmHg TV Peak E Velocity 72.0 cm/s Right Atrial Pressure 3.0 mmHg Pulmonary Artery Systolic Pressu 13.5 mmHg RV Acceleration Time 0.2 s FINDINGS Left Ventricle Left ventricle is normal in size. LV systolic function is normal with EF of 60 to 65%. No regional wall motion abnormalities are seen. Diasotlic function is normal Right Ventricle Normal in size and function Right Atrium Normal in size Left Atrium Normal in size Mitral Valve Structurally normal mitral valve. Trace mitral regurgitation. Aortic Valve Structurally normal aortic valve. No significant stenosis or regurgitation. Tricuspid Valve Mild tricuspid regurgitation. Insufficient TR jet to calculate RVSP Pulmonic Valve Not well visualized Pericardium Normal Aorta Normal in size IVC Appears to be normal CONCLUSIONS LV systolic unction is normal with EF of 60 to 65% Diastolic function is normal Trace mitral regurgitation Mild tricuspid regurgitation No comparison studies are available. Jhon Sherman MD (Electronically Signed) Final Date: 03 Oct 2022 10:50 S
== END 2022-09-18 13:50 | disposition home or self-care (01) ==
PROVIDERS: PCP Family Medicine; Visit Provider Internal Medicine
DX: R06.02 Shortness of breath (principal); R07.9 Chest pain, unspecified; I07.1 Rheumatic tricuspid insufficiency
CPT/HCPCS: 93306

== ENCOUNTER 2022-09-29 07:49 | Outpatient (CLI) | payer MEDICARE, MEDICAID, SELFPAY ==
--- NOTE | 2022-09-29 | ECG_ITS ---
[facility] Test Date: 2022-09-29 Pat Name: Pita Unger Department: Room: Gender: Female Educational Administrator: : 1970 Requested By: Jhon Sherman Order Number: [id number] Toshia MD: Jhon Sherman M.D. Interpretive Statements NAME OF STUDY: LEXISCAN SESTAMIBI STRESS TEST INDICATION: [Chest Pain; Shortness of Breath, ] Procedure: At the baseline, the blood pressure was 106/73 mmHg with a heart rate of 68 bpm. The electrocardiogram showed normal sinus rhythm, normal axis with normal ST and T's. The Lexiscan was infused over a period of 20 seconds. A total of 0.4 mg of Lexiscan was infused. The stress phase was continued for a total of 5 minutes. Heart rate was at the end of stress phase was 122 bpm and a blood pressure of 189/90 mmHg. The EKG at the peak infusion revealed normal sinus rhythm with no significant ST-T wave changes. Sestamibi was injected 20 seconds after the Lexiscan infusion. Blood pressure at the end of recovery phase was 158/53 mmHg with a heart rate of 91 bpm. Conclusion: 1. Normal EKG response to Lexiscan infusion 2. No Lexiscan induced chest pain or cardiac arrhythmia. 3. Normal blood pressure and heart rate response. 4. Sestamibi/sestamibi perfusion scan pending; see separate report. Electronically Signed On 10-03-2022 21:24:39 CDT by Jhon Sherman M.D. [id number]
[2022-09-29 08:02] VITALS: BMI 29.2
--- NOTE | 2022-09-29 08:03 | NMCV_ITS ---
NM jes perf SPECT r/s* [id number] Pita Unger Age: 52 Gender: F : 1970 Exam Date: 09/29/2022 08:51 Ordering Phys: Jhon Sherman M.D ([email or web address]) Technologist: ASA Miller Exam Location: [facility] Indications: CHEST PAIN, SHORTNESS OF BREATH STRESS TEST [facility] IMAGE PROTOCOL Rest/Stress 1 Lexiscan Day Radiopharmaceutical Dose (mCi) Administration Site Administered by Rest: Tc-99m 10.8 IV ASA Bar Sestamibi Stress:Tc-99m 32.6 IV ASA Bar Sestamibi Rest: 29-Sep-2022 60 Discovery 630 Stress: 29-Sep-2022 30 Discovery 630 0.4mg Lexiscan. Images obtained in supine and prone position. SPECT RESULTS Technical Quality: Excellent Raw Data Analysis: Normal Image Corrections: No attenuation or motion correction applied Summed Stress Score: 1 Summed Rest Score: 7 Summed Difference Score: 0 PERFUSION FINDINGS SPECT images demonstrate homogeneous tracer distribution throughout the myocardium. FUNCTIONAL RESULTS (calculated via Gated SPECT) Stress Image LV EF (%): 82 Stress EDV (mL):93 TID: 1 Stress ESV (mL):17 FUNCTIONAL FINDINGS: There is normal left ventricular systolic function. IMPRESSIONS 1. Normal myocardial perfusion imaging with no evidence of ischemia 2. LV systolic function is normal Jhon Sherman MD (Electronically Signed) Final Date: 01 Oct 2022 12:29 S
[2022-09-29 09:51] VITALS: BP 114/71; PULSE 99
--- NOTE | 2022-09-29 10:01 | PC.NURSE ---
pt not able to hit target heart rate. O2 sat dropped to 80% during exercise. test switched to lexiscan and was placed on 2L of O2 throughout recover. pt completed test without further incident.
[2022-09-29] MEDS: regadenoson 0.4 Mg/5 ml Syringe IVP (10:03)
== END 2022-09-29 07:50 | disposition home or self-care (01) ==
LOC: CDL 07:50
PROVIDERS: PCP Family Medicine; Visit Provider Internal Medicine
DX: R07.9 Chest pain, unspecified (principal); R06.02 Shortness of breath
CPT/HCPCS: 78452; 93017; A9500; J2785

== ENCOUNTER → 2022-11-10 12:38 | Outpatient (BNVA) | payer MEDICARE, MEDICAID, SELFPAY | PROVIDERS: PCP Family Medicine; Visit Provider Internal Medicine | DX: R06.00 Dyspnea, unspecified (principal); R09.02 Hypoxemia; Z72.0 Tobacco use | CPT/HCPCS: 99214 ==

== ENCOUNTER → 2023-04-16 11:22 | Outpatient (BNVA) | payer MEDICARE, MEDICAID, OTHER, SELFPAY | PROVIDERS: PCP Family Medicine; Visit Provider Nurse Practitioner Psychiatric/Mental Health | DX: Z79.899 Other long term (current) drug therapy (principal); F20.0 Paranoid schizophrenia; F17.210 Nicotine dependence, cigarettes, uncomplicated | CPT/HCPCS: 80053; 80061; 83036 ==

== ENCOUNTER 2023-09-23 10:57 | Outpatient (CLI) | payer MEDICARE, MEDICAID, SELFPAY ==
--- NOTE | 2023-09-23 11:30 | MM_ITS ---
WS: [id number] Bilateral screening 3D tomosynthesis digital mammogram, 09/23/2023 Clinical Data: Z12.31 - Encounter for screening mammogram for malignant ... Comparison: None. Findings: The breast parenchymal pattern shows fibroglandular tissue. No spiculated masses or clustered calcifi cations are seen. There is minimal increase in density in the upper outer quadrant left breast but no evidence of any malignancy. There are no secondary signs of carcinoma. MM/[place] [id number] Impression: 1. Negative bilateral mammogram with no prior exam for review. 2. Recommend annual screening mammograms. BIRADS: 1-Negative FOLLOW UP: 1 Year Follow-up The CAD sample checker was used.
== END 2023-09-23 10:58 | disposition home or self-care (01) ==
LOC: RAD 10:57
PROVIDERS: PCP Family Medicine; Visit Provider Nurse Practitioner Family
DX: Z12.31 Encounter for screening mammogram for malignant neoplasm of breast (principal)
CPT/HCPCS: 77063; 77067

== ENCOUNTER 2023-09-28 09:04 | Outpatient (CLI) | payer MEDICARE, MEDICAID, SELFPAY ==
--- NOTE | 2023-09-28 09:00 | CT_ITS ---
WS: [id number] LDCT LUNG CANCER SCREENING TECHNIQUE: Noncontrast CT of the chest with coronal and sagittal reformatted images. CLINICAL INFORMATION: F17.210 - Nicotine dependence, cigarettes, uncomplicated COMPARISON: None. DLP: 63.91 mGy.cm DIvol: Mean CTDIvol: 1.40 (mGy) All CT scans at [facility] use at least one of these dose optimization techniques: automat ed exposure control; mA and/or kV adjustment per patient size (includes targeted exams where dose is matched to clinical indication); or iterative reconstruction. FINDINGS: Advanced chronic emphysematous changes. No acute pulmonary infiltrates. Subsegmental atelectasis in t he RIGHT middle lobe and RIGHT lower lobe. Calcified mediastinal and RIGHT hilar lymph nodes. A few c alcified granulomas. No suspicious pulmonary parenchymal opacities. Mild thoracic kyphosis. No axillary lymphadenopathy. Normal GE junction. Adrenal glands are normal. CT/CT lung screening [id number] IMPRESSION: LUNG-RADS: 2-Benign Appearance or Behavior FOLLOW UP: 12 Month: Continue annual screening with LDCT
== END 2023-09-28 09:05 | disposition home or self-care (01) ==
LOC: RAD 09:04
PROVIDERS: PCP Family Medicine; Visit Provider Nurse Practitioner Family
DX: F17.210 Nicotine dependence, cigarettes, uncomplicated (principal); Z12.2 Encounter for screening for malignant neoplasm of respiratory organs
CPT/HCPCS: 71271

== ENCOUNTER → 2023-10-21 09:00 | Outpatient (BNVA) | payer OTHER, MEDICAID, MEDICARE, SELFPAY | PROVIDERS: PCP Family Medicine; Visit Provider Nurse Practitioner Family | DX: I50.9 Heart failure, unspecified (principal); E55.9 Vitamin D deficiency, unspecified; Z86.39 Personal history of other endocrine, nutritional and metabolic disease | CPT/HCPCS: 80053; 80061; 82306; 83036; 85025 ==

== ENCOUNTER → 2023-11-29 14:00 | Outpatient (BNVA) | payer OTHER, MEDICAID, MEDICARE, SELFPAY | PROVIDERS: PCP Family Medicine; Visit Provider Podiatrist Foot & Ankle Surgery | DX: L60.3 Nail dystrophy (principal); I73.9 Peripheral vascular disease, unspecified; L84 Corns and callosities | CPT/HCPCS: 11056; 11721; 99203 ==

== ENCOUNTER → 2023-12-06 12:25 | Outpatient (BNVA) | payer MEDICARE, MEDICAID, SELFPAY | PROVIDERS: PCP Family Medicine; Visit Provider Internal Medicine | DX: R06.09 Other forms of dyspnea (principal); R09.02 Hypoxemia; F17.210 Nicotine dependence, cigarettes, uncomplicated | CPT/HCPCS: 99214 ==

== ENCOUNTER → 2024-01-10 09:48 | Outpatient (BNVA) | payer OTHER, MEDICAID, MEDICARE, SELFPAY | PROVIDERS: PCP Family Medicine; Visit Provider Nurse Practitioner Family | DX: L30.9 Dermatitis, unspecified (principal); D22.4 Melanocytic nevi of scalp and neck; L81.4 Other melanin hyperpigmentation | CPT/HCPCS: 11102; 99204 ==

== ENCOUNTER → 2024-02-07 14:34 | Outpatient (BNVA) | payer OTHER, MEDICAID, MEDICARE, SELFPAY | PROVIDERS: PCP Family Medicine; Visit Provider Nurse Practitioner Family | DX: L40.0 Psoriasis vulgaris (principal) | CPT/HCPCS: 99214 ==

== ENCOUNTER → 2024-02-23 14:58 | Outpatient (BNVA) | payer OTHER, MEDICAID, MEDICARE, SELFPAY | PROVIDERS: PCP Family Medicine; Visit Provider Podiatrist Foot & Ankle Surgery | DX: L60.3 Nail dystrophy (principal); I73.9 Peripheral vascular disease, unspecified; L84 Corns and callosities | CPT/HCPCS: 11056; 11721 ==

== ENCOUNTER → 2024-07-20 13:53 | Outpatient (BNVA) | payer MEDICARE, MEDICAID, SELFPAY | PROVIDERS: PCP Family Medicine; Visit Provider Family Medicine | DX: I10 Essential (primary) hypertension (principal); I50.9 Heart failure, unspecified; R06.09 Other forms of dyspnea; Z86.39 Personal history of other endocrine, nutritional and metabolic disease | CPT/HCPCS: 80053; 80061; 83036; 84443; 85025 ==

== ENCOUNTER 2024-10-17 09:47 | Outpatient (CLI) | payer MEDICARE, MEDICAID, SELFPAY ==
--- NOTE | 2024-10-17 10:00 | MM_ITS ---
WS: [id number] BILATERAL 3D TOMOSYNTHESIS DIGITAL SCREENING MAMMOGRAPHY WITH CAD CLINICAL INFORMATION: Z12.31 - Encounter for screening mammogram for malignant ... HISTORY: Screening mammogram. No current complaints. COMPARISON: 2023 TECHNIQUE: Bilateral CC and MLO views. FINDINGS: Scattered fibroglandular densities bilaterally. No suspicious focal mass, asymmetry, calcifications, or architectural distortion. No evidence of malignancy. MM/MM scr tomosynthesis [id number] IMPRESSION: DENSITY: There are scattered areas of fibroglandular density. BI-RADS: 1 - Negative. FOLLOW UP: 1 Year Follow-up Recommend return to annual screening mammography.
== END 2024-10-17 09:48 | disposition home or self-care (01) ==
PROVIDERS: PCP Family Medicine; Visit Provider Family Medicine
DX: Z12.31 Encounter for screening mammogram for malignant neoplasm of breast (principal); R92.323 Mammographic fibroglandular density, bilateral breasts
CPT/HCPCS: 77063; 77067

== ENCOUNTER 2024-10-24 10:03 | Outpatient (CLI) | payer MEDICARE, MEDICAID, SELFPAY ==
--- NOTE | 2024-10-24 10:45 | CT_ITS ---
WS: [id number] LDCT LUNG CANCER SCREENING HISTORY: F17.210 - Nicotine dependence, cigarettes, uncomplicated TECHNIQUE: Axial imaging performed from the apices to 1 cm below the costophrenic angles. Coronal and sagittal reformats are submitted with axial MIP series. All CT scans at [facility] use at least one of these dose optimization techniques: automated exposure control; mA and/or kV adjustment per patient size (includes targeted exams where dose is matched to clinical indication); or iterative reconstruction. DLP: 65.49 mGy.cm DIvol: Mean CTDIvol: 1.40 (mGy) COMPARISON: 09/28/2023 Diagnostic quality: Satisfactory Lungs: Mild pulmonary hyperinflation. There are several scattered pulmonary nodules which are less than 3 mm. Some of these nodules are calcified. No new or growing nodule or mass. No pneumonia. Heart: Normal size heart with no pericardial effusion.. Other findings: Mild ectasia thoracic aorta. Pulmonary artery is dilated. Benign RIGHT paratracheal calcified lymph nodes. Mild thickening of the LEFT adrenal gland. No definite nodule at this time. RIGHT adrenal gland is negative. CT/CT lung screening [id number] IMPRESSION: LUNG-RADS: 2-Benign Appearance or Behavior FOLLOW UP: 12 Month: Continue annual screening with LDCT OTHER FINDINGS (S MODIFIER): None.
== END 2024-10-24 10:04 | disposition home or self-care (01) ==
LOC: RAD 10:06
PROVIDERS: PCP Family Medicine; Visit Provider Family Medicine
DX: Z12.2 Encounter for screening for malignant neoplasm of respiratory organs (principal); F17.210 Nicotine dependence, cigarettes, uncomplicated; R91.8 Other nonspecific abnormal finding of lung field; I77.819 Aortic ectasia, unspecified site; I77.810 Thoracic aortic ectasia; I28.1 Aneurysm of pulmonary artery; R59.0 Localized enlarged lymph nodes; E27.8 Other specified disorders of adrenal gland
CPT/HCPCS: 71271

== ENCOUNTER → 2025-01-08 14:37 | Outpatient (BNVA) | payer MEDICARE, MEDICAID, SELFPAY | PROVIDERS: PCP Family Medicine; Visit Provider Internal Medicine | DX: R06.09 Other forms of dyspnea (principal); Z72.0 Tobacco use | CPT/HCPCS: 99213 ==

== ENCOUNTER → 2025-03-28 14:30 | Outpatient (BNVA) | payer MEDICARE, MEDICAID, SELFPAY | PROVIDERS: PCP Family Medicine; Visit Provider Family Medicine | DX: I10 Essential (primary) hypertension (principal); J96.11 Chronic respiratory failure with hypoxia; J41.0 Simple chronic bronchitis; I50.9 Heart failure, unspecified; E55.9 Vitamin D deficiency, unspecified; R79.89 Other specified abnormal findings of blood chemistry | CPT/HCPCS: 80053; 80061; 82306; 82607; 83036; 84443; 85025 ==

== ENCOUNTER → 2025-04-24 15:13 | Outpatient (BNVA) | payer MEDICARE, MEDICAID, SELFPAY | PROVIDERS: PCP Family Medicine; Referring Provider Family Medicine; Visit Provider Internal Medicine | DX: J96.11 Chronic respiratory failure with hypoxia (principal); Z99.81 Dependence on supplemental oxygen; J44.89 Other specified chronic obstructive pulmonary disease; R91.8 Other nonspecific abnormal finding of lung field; F17.210 Nicotine dependence, cigarettes, uncomplicated; T78.40XA Allergy, unspecified, initial encounter; X58.XXXA Exposure to other specified factors, initial encounter; J44.9 Chronic obstructive pulmonary disease, unspecified | CPT/HCPCS: 99204; Q3014 ==